=== PATIENT | female | born 1980 | race Caucasian/White ===

== ENCOUNTER 2023-08-01 10:30 | Inpatient (IN) ==
[2023-08-01 11:03] LABS: ABS Lymphocytes 0.7 10^3/uL (1.0-4.8); ABS Monocytes 0.3 10^3/uL (0.0-0.9); ABS Neutrophils 16.3 10^3/uL (1.5-7.6); ABS Nucleated RBC 0.01 10^3/ul; Eosinophil % 0.1 %; Hematocrit 44.1 % (35-45); Hemoglobin 15.2 g/dL (11.5-14.3); Lymphocyte % 4.1 %; Mean Corpuscular Hemoglobin 30.6 pg (27-33); Mean Corpuscular Hgb Conc 34.6 g/dL (31-36); Mean Corpuscular Volume 88.6 fL (80-97); Mean Platelet Volume 7.8 fL (7.5-11.2); Platelet Count 306 10^3/uL (150-450); Red Blood Count 4.97 10^6/uL (3.63-4.92); Red Cell Distribution Width 13.4 % (12-17); White Blood Count 17.4 10^3/uL (3.8-11.8)
[2023-08-01] MEDS ORDERED: HYDROmorphone 1 MG/1 ML SYRINGE IV ONE ×5 (11:03→13:08)
[2023-08-01 11:16] LABS: INR 1.25 (0.83-1.13)
[2023-08-01 11:25] LABS: ALT 9 U/L (7-52); AST 9 U/L (13-39); Albumin 4.3 g/dL (3.2-5.2); Albumin/Globulin Ratio 1.8 (1-3); Alkaline Phosphatase 53 U/L (35-149); Anion Gap 11 mmol/L (2-16); Blood Urea Nitrogen 14 mg/dL (6-24); CO2 Carbon Dioxide 16 mmol/L (22-32); Calcium 7.8 mg/dL (8.6-10.3); Chloride 110 mmol/L (101-111); Creatinine, Serum 0.66 mg/dL (0.51-0.95); Globulin 2.4 g/dL (2-4); Glucose 89 mg/dL (70-100); Lipase 52 U/L (11.0-82.0); Potassium 3.5 mmol/L (3.5-5.0); Sodium 137 mmol/L (135-145); Total Protein 6.7 g/dL (6.4-8.9); eGFR CKD-EPI 112.2 (>60)
[2023-08-01 11:31] LABS: High Sens Troponin Baseline < 3 pg/mL (<15)
[2023-08-01 11:33] LABS: HCG Pregnancy < 0.60 mIU/mL
[2023-08-01] MEDS ORDERED: Iodixanol (CONTRAST) 320 MG/ML 100 ML SDV IV ONE (11:37)
[2023-08-01] MEDS ORDERED: HYDROmorphone 1 MG/1 ML SYRINGE ONE ×3 (11:39→18:18)
[2023-08-01] MEDS ORDERED: Piperacillin/Tazobac 3.375 BAG 3.375 GM/100 ML BAG IV ONE (11:46)
[2023-08-01] MEDS ORDERED: Lactated Ringers 1000 ml BAG 1,000 ML IV ONE ×2 (11:46→11:47)
[2023-08-01] MEDS ORDERED: NS 0.9% 1000 ml BAG 1,000 ML IV ONE ×2 (11:59)
[2023-08-01 12:14] LABS: High Sensitivity Troponin 1 Hr < 3 pg/mL (<15)
[2023-08-01] MEDS ORDERED: Pantoprazole VIAL 40 MG VIAL IV ONE (12:33)
[2023-08-01] MEDS ORDERED: Midazolam 2 mg/2 ml VIAL 1 mg/ml 2 ml VIAL (2 mg) ONE (13:13)
[2023-08-01] MEDS ORDERED: Rocuronium 50 mg VIAL 10 mg/ml 5 ml VIAL (50 mg) ONE (13:13)
[2023-08-01] MEDS ORDERED: Lidocaine 2% PF 5 ML VIAL ONE ×2 (13:14→15:49)
[2023-08-01] MEDS ORDERED: Dexamethasone IV 4 MG/ML VIAL 1 ml VIAL ONE (13:14)
[2023-08-01] MEDS ORDERED: fentaNYL 250 mcg/5 ml 50 MCG/ML 5 ml VIAL (250 MCG) ONE (13:14)
[2023-08-01] MEDS ORDERED: Propofol 10 MG/ML 20 ML BTL ONE (13:14)
[2023-08-01] MEDS ORDERED: Ondansetron 4 mg VIAL 2 MG/ML 2 ml VIAL ONE ×2 (13:14→17:47)
[2023-08-01] MEDS ORDERED: Naloxone 0.4 mg VIAL 0.4 mg/ml 1 ml VIAL IV PRN (14:33)
[2023-08-01] MEDS ORDERED: Ondansetron 4 mg VIAL 2 MG/ML 2 ml VIAL IV PRN (14:33)
[2023-08-01] MEDS ORDERED: Acetaminophen IV 1 GM/100ML 1,000 MG/100 ML BAG IV PRN (14:33)
[2023-08-01] MEDS ORDERED: fentaNYL 100 mcg/2 ml 50 MCG/ML VIAL ONE (17:47)
[2023-08-01] MEDS: fentaNYL 100 mcg/2 ml 50 MCG/ML VIAL IV PRN ×4 (17:48→18:08)
[2023-08-01] MEDS ORDERED: Naloxone 0.4 mg VIAL 0.4 mg/ml 1 ml VIAL IV PUSH PRN (17:57)
[2023-08-01] MEDS ORDERED: Morphine PCA ADULT 5 MG/ML 30 ML PCA SCH (18:00)
[2023-08-01] MEDS: HYDROmorphone 1 MG/1 ML SYRINGE IV PRN ×5 (18:19→22:21)
[2023-08-01] MEDS ORDERED: [UNRECOGNIZED DRUG - OTHER] IV SCH (21:00)
[2023-08-01] MEDS ORDERED: ACETAMINOPHEN 1 GM/100 ML IV SCH (21:00)
[2023-08-01] MEDS: Ondansetron 4 mg VIAL 2 MG/ML 2 ml VIAL IV PRN (22:11)
[2023-08-01] MEDS: Heparin 5000 UNITS/ML 1 mL VIAL SUBCUT SCH (22:16)
[2023-08-01] MEDS: Pantoprazole VIAL 40 MG VIAL IV SCH (22:16)
[2023-08-01] MEDS: ZOSYN 3.375 GM Q8H per EXTENDED INFUSION IV SCH (22:16)
[2023-08-01] MEDS: D5LR 20 MEQ KCL 1000 ml BAG 1,000 ML IV SCH (22:20)
[2023-08-01] MEDS: Acetaminophen IV 1 GM/100ML 1,000 MG/100 ML BAG IV SCH (22:20)
[2023-08-02] MEDS: HYDROmorphone 1 MG/1 ML SYRINGE IV PRN ×10 (01:03→23:11)
[2023-08-02] MEDS: Acetaminophen IV 1 GM/100ML 1,000 MG/100 ML BAG IV SCH ×4 (03:17→23:14)
[2023-08-02] MEDS: Levothyroxine 100 MCG/5 ML VIAL IV SCH (05:28)
[2023-08-02] MEDS: Heparin 5000 UNITS/ML 1 mL VIAL SUBCUT SCH ×3 (05:28→23:16)
[2023-08-02] MEDS: ZOSYN 3.375 GM Q8H per EXTENDED INFUSION IV SCH ×3 (05:29→21:25)
[2023-08-02 07:34] LABS: ABS Lymphocytes 1.1 10^3/uL (1.0-4.8); ABS Monocytes 0.4 10^3/uL (0.0-0.9); ABS Neutrophils 13.8 10^3/uL (1.5-7.6); ABS Nucleated RBC 0.01 10^3/ul; Hematocrit 36.9 % (35-45); Hemoglobin 12.9 g/dL (11.5-14.3); Lymphocyte % 6.9 %; Mean Corpuscular Volume 88.6 fL (80-97); Mean Platelet Volume 8.1 fL (7.5-11.2); Nucleated Red Blood Cells % 0.1 /100 WBC (0.0-0.4); Platelet Count 259 10^3/uL (150-450); Red Blood Count 4.16 10^6/uL (3.63-4.92); Red Cell Distribution Width 13.3 % (12-17); White Blood Count 15.2 10^3/uL (3.8-11.8)
[2023-08-02 08:04] LABS: Creatinine, Serum 0.57 mg/dL (0.51-0.95); Potassium 3.7 mmol/L (3.5-5.0); eGFR CKD-EPI 116.3 (>60)
[2023-08-02] MEDS: Ondansetron 4 mg VIAL 2 MG/ML 2 ml VIAL IV PRN ×2 (08:52→23:10)
[2023-08-02] MEDS: Pantoprazole VIAL 40 MG VIAL IV SCH ×2 (08:55→21:10)
[2023-08-02 10:24] LABS: Urine Appearance Cloudy; Urine Bilirubin Negative (Negative); Urine Blood Negative (Negative); Urine Color Yellow; Urine Glucose Negative (Negative); Urine Ketones 1+ (Negative); Urine Nitrite Negative (Negative); Urine Protein 1+(30 mg/dL) (Negative); Urine Urobilinogen Negative (Negative)
[2023-08-02 10:26] LABS: Urine Bacteria Absent (Absent); Urine Red Blood Cell 1+(3-5/hpf) (Absent); Urine White Blood Cell 1+(6-10/hpf) (Absent)
[2023-08-02] MEDS: D5LR 20 MEQ KCL 1000 ml BAG 1,000 ML IV SCH ×2 (14:41→23:16)
[2023-08-02] MEDS: Phenol 1.4% Throat Spray BTL MT PRN ×3 (17:22→23:10)
[2023-08-03] MEDS: Phenol 1.4% Throat Spray BTL MT PRN ×4 (01:13→07:40)
[2023-08-03] MEDS: HYDROmorphone 1 MG/1 ML SYRINGE IV PRN ×9 (01:13→22:22)
[2023-08-03] MEDS: Acetaminophen IV 1 GM/100ML 1,000 MG/100 ML BAG IV SCH ×4 (03:17→22:15)
[2023-08-03] MEDS: Levothyroxine 100 MCG/5 ML VIAL IV SCH (05:22)
[2023-08-03] MEDS: Heparin 5000 UNITS/ML 1 mL VIAL SUBCUT SCH ×3 (05:27→22:12)
[2023-08-03] MEDS: ZOSYN 3.375 GM Q8H per EXTENDED INFUSION IV SCH ×3 (05:31→22:36)
[2023-08-03 05:47] LABS: ABS Eosinophils 0.1 10^3/uL (0.0-0.5); ABS Lymphocytes 0.9 10^3/uL (1.0-4.8); ABS Monocytes 0.4 10^3/uL (0.0-0.9); ABS Neutrophils 8.1 10^3/uL (1.5-7.6); ABS Nucleated RBC 0.01 10^3/ul; Eosinophil % 0.7 %; Hematocrit 32.2 % (35-45); Hemoglobin 11.4 g/dL (11.5-14.3); Lymphocyte % 9.8 %; Mean Corpuscular Hemoglobin 31.2 pg (27-33); Mean Corpuscular Hgb Conc 35.4 g/dL (31-36); Mean Corpuscular Volume 88.3 fL (80-97); Mean Platelet Volume 8.3 fL (7.5-11.2); Nucleated Red Blood Cells % 0.1 /100 WBC (0.0-0.4); Platelet Count 231 10^3/uL (150-450); Red Blood Count 3.65 10^6/uL (3.63-4.92); Red Cell Distribution Width 13.4 % (12-17); White Blood Count 9.5 10^3/uL (3.8-11.8)
[2023-08-03 05:59] LABS: Calcium 7.5 mg/dL (8.6-10.3); Potassium 3.5 mmol/L (3.5-5.0)
[2023-08-03 06:05] LABS: Creatinine, Serum 0.42 mg/dL (0.51-0.95); eGFR CKD-EPI 125.2 (>60)
[2023-08-03] MEDS: D5LR 20 MEQ KCL 1000 ml BAG 1,000 ML IV SCH ×2 (07:46→16:31)
[2023-08-03] MEDS: Pantoprazole VIAL 40 MG VIAL IV SCH ×2 (09:58→22:12)
[2023-08-03] MEDS: Ondansetron 4 mg VIAL 2 MG/ML 2 ml VIAL IV PRN ×2 (10:52→19:35)
[2023-08-04] MEDS: D5LR 20 MEQ KCL 1000 ml BAG 1,000 ML IV SCH ×2 (00:52→13:41)
[2023-08-04] MEDS: HYDROmorphone 1 MG/1 ML SYRINGE IV PRN ×10 (00:53→22:30)
[2023-08-04] MEDS: Acetaminophen IV 1 GM/100ML 1,000 MG/100 ML BAG IV SCH ×3 (03:18→18:16)
[2023-08-04] MEDS: Levothyroxine 100 MCG/5 ML VIAL IV SCH (05:28)
[2023-08-04] MEDS: ZOSYN 3.375 GM Q8H per EXTENDED INFUSION IV SCH ×3 (05:34→22:30)
[2023-08-04] MEDS: Heparin 5000 UNITS/ML 1 mL VIAL SUBCUT SCH ×3 (05:48→22:30)
[2023-08-04 08:19] LABS: ABS Eosinophils 0.1 10^3/uL (0.0-0.5); ABS Lymphocytes 0.9 10^3/uL (1.0-4.8); ABS Monocytes 0.2 10^3/uL (0.0-0.9); ABS Neutrophils 4.1 10^3/uL (1.5-7.6); Eosinophil % 1.4 %; Hematocrit 30.2 % (35-45); Lymphocyte % 16.4 %; Mean Corpuscular Hemoglobin 31.8 pg (27-33); Mean Corpuscular Hgb Conc 36.3 g/dL (31-36); Mean Corpuscular Volume 87.6 fL (80-97); Mean Platelet Volume 8.6 fL (7.5-11.2); Nucleated Red Blood Cells % 0.1 /100 WBC (0.0-0.4); Platelet Count 220 10^3/uL (150-450); Red Blood Count 3.45 10^6/uL (3.63-4.92); Red Cell Distribution Width 13.7 % (12-17); White Blood Count 5.3 10^3/uL (3.8-11.8)
[2023-08-04 08:37] LABS: Calcium 7.4 mg/dL (8.6-10.3); Creatinine, Serum 0.39 mg/dL (0.51-0.95); Potassium 3.6 mmol/L (3.5-5.0); eGFR CKD-EPI 127.4 (>60)
[2023-08-04] MEDS: Pantoprazole VIAL 40 MG VIAL IV SCH ×2 (10:08→22:30)
[2023-08-05] MEDS: HYDROmorphone 1 MG/1 ML SYRINGE IV PRN ×6 (00:41→21:35)
[2023-08-05] MEDS: Acetaminophen IV 1 GM/100ML 1,000 MG/100 ML BAG IV SCH ×4 (00:41→18:25)
[2023-08-05] MEDS: Levothyroxine 100 MCG/5 ML VIAL IV SCH (05:49)
[2023-08-05] MEDS: Heparin 5000 UNITS/ML 1 mL VIAL SUBCUT SCH ×3 (05:49→21:35)
[2023-08-05] MEDS: ZOSYN 3.375 GM Q8H per EXTENDED INFUSION IV SCH ×3 (06:05→21:35)
[2023-08-05] MEDS ORDERED: oxyCODONE 5 mg/5 ml ORAL.SOLN UDC PO PRN (08:18)
[2023-08-05] MEDS: Morphine ER 15 mg TAB ** extended release PO SCH ×2 (08:45→20:23)
[2023-08-05] MEDS: oxyCODONE 5 mg/5 ml ORAL.SOLN UDC G TUBE PRN ×2 (08:52→16:12)
[2023-08-05] MEDS: Pantoprazole VIAL 40 MG VIAL IV SCH ×2 (08:56→20:23)
[2023-08-05] MEDS: D5LR 20 MEQ KCL 1000 ml BAG 1,000 ML IV SCH (10:46)
[2023-08-05] MEDS: Ondansetron 4 mg VIAL 2 MG/ML 2 ml VIAL IV PRN (14:44)
[2023-08-06] MEDS: HYDROmorphone 1 MG/1 ML SYRINGE IV PRN ×4 (00:39→08:55)
[2023-08-06] MEDS: Acetaminophen IV 1 GM/100ML 1,000 MG/100 ML BAG IV SCH ×2 (02:01→09:55)
[2023-08-06] MEDS: Ondansetron 4 mg VIAL 2 MG/ML 2 ml VIAL IV PRN ×2 (03:25→11:32)
[2023-08-06] MEDS: Levothyroxine 100 MCG/5 ML VIAL IV SCH (05:24)
[2023-08-06] MEDS: Heparin 5000 UNITS/ML 1 mL VIAL SUBCUT SCH ×3 (05:25→22:55)
[2023-08-06] MEDS: oxyCODONE 5 mg/5 ml ORAL.SOLN UDC G TUBE PRN (05:41)
[2023-08-06] MEDS: D5LR 20 MEQ KCL 1000 ml BAG 1,000 ML IV SCH (08:00)
[2023-08-06] MEDS ORDERED: Acetaminophen IV 1 GM/100ML 1,000 MG/100 ML BAG IV SCH (08:30)
[2023-08-06] MEDS: ZOSYN 3.375 GM Q8H per EXTENDED INFUSION IV SCH ×3 (08:59→22:55)
[2023-08-06] MEDS: Morphine ER 15 mg TAB ** extended release PO SCH ×2 (09:12→20:26)
[2023-08-06] MEDS: Pantoprazole VIAL 40 MG VIAL IV SCH ×2 (09:13→20:26)
[2023-08-06] MEDS ORDERED: oxyCODONE 5 mg/5 ml ORAL.SOLN UDC PO PRN (11:01)
[2023-08-06] MEDS ORDERED: HYDROmorphone 1 MG/1 ML SYRINGE IV PRN (11:01)
[2023-08-06] MEDS ORDERED: Calcium Carb (TUMS) 500 mg CHEW TAB PO PRN (17:55)
[2023-08-07] MEDS: ZOSYN 3.375 GM Q8H per EXTENDED INFUSION IV SCH (06:09)
[2023-08-07] MEDS: Heparin 5000 UNITS/ML 1 mL VIAL SUBCUT SCH (06:10)
[2023-08-07] MEDS: Morphine ER 15 mg TAB ** extended release PO SCH (08:07)
[2023-08-07] MEDS: Pantoprazole VIAL 40 MG VIAL IV SCH (08:29)
[2023-08-07] MEDS: Ondansetron 4 mg VIAL 2 MG/ML 2 ml VIAL IV PRN (10:11)
[2023-08-07 10:30] VITALS: BP 100/54
== END 2023-08-07 13:50 | disposition home or self-care (01) | DRG 220 ==
LOC: ED 10:30 → EDHOLD 12:44 → SSU 13:00
PROVIDERS: ADMIT Surgery; ATTEND Surgery